=== PATIENT | female | born 1940 | race Caucasian/White ===

== ENCOUNTER 2018-12-22 20:54 | Emergency (ER) | payer OTHER, MEDICARE ==
--- NOTE | 2018-12-22 21:24 | PDOC ---
Rapid Medical Evaluation Chief Complaint: Hematuria Medical Evaluation: I have performed a brief in-person evaluation of this patient. The patient presents with a chief complaint of: c/o hematuria from today; + dysuria and suprapubic discomfort; denies fever, vomiting; hx of kidney stones, asthma, hypothyroidism Pertinent physical exam findings: In NAD, abdomen soft, NT; no CVA tenderness I have ordered the following: Labs, urine The patient will proceed to the ED for further evaluation. 12/22/18 21:20
[2018-12-22 21:27] VITALS: BMI 12.9
--- NOTE | 2018-12-22 21:38 | PDOC ---
History of Present Illness - General Chief Complaint: Hematuria Stated Complaint: Hematuria Time Seen by Provider: 12/22/18 21:20 - History of Present Illness Initial Comments: 12/22/18 22:10 The patient is a 78 year old female with a history of kidney stones, Seizures, Asthma who presents for evaluation of hematuria. The patient reports noting blood in her urine today with associated lower abdominal pain prompting her presentation to the ED for further evaluation. She notes that her symptoms do not feel similar to her prior kidney stones. She reports associated nausea as well but otherwise denies fevers, chills, SOB, chest pain, vomiting, or changes with bowel movements. Past History - Past Medical History Allergies/Adverse Reactions: Allergies Allergy/AdvReac Type Severity Reaction Status Date / Time No Allergy Information Allergy Verified 12/22/18 21:26 Available Home Medications: Ambulatory Orders Levothyroxine [Synthroid -] 25 mcg PO DAILY 12/22/18 Levothyroxine [Synthroid -] 50 mcg PO DAILY 12/22/18 Cephalexin Monohydrate [Keflex -] 500 mg PO BID #14 capsule 12/23/18 Cephalexin [Keflex *Suspension*] 10 ml PO BID 10 Days #140 bottle 12/23/18 Asthma: Yes COPD: No Kidney Stones: Yes Psychiatric Problems: Yes Seizures: Yes - Suicide/Smoking/Psychosocial Hx Smoking History: Never smoked Have you smoked in the past 12 months: No Information on smoking cessation initiated: No Hx Alcohol Use: No Drug/Substance Use Hx: No Review of Systems - Review of Systems Comments:: 12/22/18 22:30 Constitutional: No fevers, chills, fatigue, malaise HEENT: No Rhinorrhea, nasal congestion, visual changes Cardiovascular: No chest pain, syncope, palpitations, lightheadedness Respiratory: No Cough, SOB, Hemoptysis, Gastrointestinal: Suprapubic abdominal pain, No Vomiting, Constipation, Diarrhea , Melena Genitourinary: Hematuria. No Dysuria, Frequency, Urgency, Hesitancy, Flank pain Musculoskeletal: No Myalgia, arthralgia Skin: No rashes, itching, bruising, pallor Neurologic: No Headache, Dizziness, Numbness, Weakness, or Tingling Psychiatric: No Hallucinations. No SI or HI *Physical Exam - Vital Signs Last Vital Signs Temp Pulse Resp BP Pulse Ox 97.8 F 122 H 20 155/82 100 09/20/19 21:17 12/22/18 21:17 12/22/18 21:17 12/22/18 21:17 12/22/18 21:17 - Physical Exam Comments: 12/22/18 22:30 General Appearance: Nourished. No Apparent Distress HEENT: No Pharyngeal Erythema, Tonsillar Exudate, Tonsillar Erythema Neck: No Cervical Lymphadenopathy Respiratory/Chest: Lungs Clear, Normal Breath Sounds. No Crackles, Rales, Rhonchi, Wheezing Cardiovascular: Regular Rhythm, Regular Rate. No Murmur, Gallops, Rubs Gastrointestinal/Abdominal: Normal Bowel Sounds, Soft. Mild Suprapubic discomfort with palpation. No Guarding, Rebound, Musculoskeletal: No CVA Tenderness Extremity: Normal Capillary Refill Integumentary: Normal Color, Dry, Warm Neurologic: Fully Oriented, Alert, Normal Mood/Affect, Normal Response, ED Treatment Course - LABORATORY CBC & Chemistry Diagram: 12/22/18 22:35 12/22/18 23:14 Medical Decision Making - Medical Decision Making 12/22/18 22:31 The patient is a 78 year old female with a history of kidney stones, Seizures, Asthma who presents for evaluation of hematuria. Given the patient's history and physical exam, we will obtain a cbc, cmp, blood cultures, ua, urine cultures to evaluate further. We will treat with iv fluids, ceftriaxone in the meantime and continue to monitor and reassess while here in the ED. 12/23/18 01:38 CBC, cmp are unremarkable. UA demonstrates positive leuk esterase, elevated wbc and rbc. Bladder US demonstrated no acute findings as preliminarily read by our telephone clerks supervisor radiologist. Patient refused CT scanning at this time as well as ceftriaxone. We are comfortable discharging the patient home in stable condition on keflex. Patient and family made aware of impression and plan, return precautions discussed including but not limited to worsening pain or symptoms, fevers, or signs of infection, chest pain, respiratory distress, inability to tolerate oral intake, dehydration, syncope, or neurologic changes. The patient is to follow up with PMD and specialist as recommended within 1 week , follow up information provided and the patient will call for an appointment. The patient is to take medications as instructed for duration of time and continue with supportive care, avoid triggers and precipitants. Patient is safe for outpatient follow-up. *DC/Admit/Observation/Transfer Diagnosis at time of Disposition: UTI (urinary tract infection) Qualifiers: Urinary tract infection type: site unspecified Hematuria presence: with hematuria Qualified Code(s): N39.0 - Urinary tract infection, site not specified - Discharge Dispostion Disposition: HOME Condition at time of disposition: Stable Decision to Admit order: No - Prescriptions Prescriptions: Cephalexin [Keflex *Suspension*] 10 ml PO BID 10 Days #140 bottle Cephalexin Monohydrate [Keflex -] 500 mg PO BID #14 capsule - Referrals Referrals: Xochitl Melchor MD [Primary Care Provider] - - Patient Instructions Printed Discharge Instructions: DI for Urinary Tract Infection (UTI) Additional Instructions: 1) Please follow-up with your primary care doctor in the next 2-3 days. Please call tomorrow to schedule a follow up appointment. If you cannot follow up with your doctor within 1 week please return to the Emergency Department for any urgent issues. 2) Your laboratory / imaging results were normal here in the ER, however your urine results demonstrate that you have a UTI. We have sent antibiotics to your pharmacy that you should take as directed. 3) If you have any worsening of symptoms or any other concerns, please return to the ER immediately. Return if worsening symptoms including fevers, headache, vomiting, visual or hearing disturbances, abdominal pain, chest pain, shortness of breath, syncope, dehydration, inability to take things by mouth/vomiting, altered mental status, or worsening concerning symptoms. 4) Please continue taking your home medications as directed. Side effects may include upset stomach, abdominal pain, vomiting, or diarrhea. Do not drink alcohol with your medications. - Post Discharge Activity
[2018-12-22] MEDS ORDERED: SODIUM CHLORIDE 0.9% 500 ML INFUS.BAG IV ONE (21:49)
--- NOTE | 2018-12-22 21:51 | PDOC ---
Attending Attestation - Resident Resident Name: Alen Victoria - ED Attending Attestation I have performed the following: I have examined & evaluated the patient, The case was reviewed & discussed with the resident, I agree w/resident's findings & plan - HPI HPI: 12/22/18 21:50 Pt comes with dysuria and hematuria and suprapubic abd pain. She has a hx of kidney stones. She has no flank pain at this time. She has nausea, but no vomiting. - Physicial Exam PE: 12/23/18 01:32 Pt has no abd or flank pain. Pt has only hematuria; no fever and no chills. Pt has clear lings and heart rate rhythm is normal. Pt has no edema of her extremities. - Medical Decision Making 12/22/18 23:28 Pt has leukocytes and blood in her urine. Pt has been treated with levaquin. 12/23/18 01:32 Patient Name: JUNIOR WEI THIS IS A PRELIMINARY REPORT FROM [facility] DATE OF SERVICE: 2018-12-22 23:39:17 IMAGES: 22 EXAM: Pelvic ultrasound limited to the urinary bladder HISTORY hematuria. 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 FINDINGS: Prevoid urinary bladder volume is 133.4 cc. Urinary bladder diverticula noted. Debris noted within urinary bladder. No discrete masses are noted but a mass could be obscured by the debris. Urologic evaluation recommended. Right ureteral jet not seen into the urinary bladder. Right ureteral obstruction ? Left ureteral jet was observed. Post void residual was 94.1 cc. 12/23/18 01:33 Pt is refusing spiral CT scan. She is demanding to go home/ I will send her home with rx for her UTI: Keflex suspension (pt cannot take pills) 500mg BID x 7 days.
[2018-12-22 22:52] LABS: BASO % 0.6 % (0-2.0); EOS % 0.9 % (0-4.5); HEMATOCRIT 41.3 % (32.4-45.2); HEMOGLOBIN 13.3 GM/dL (10.7-15.3); MCH 29.1 pg (25.7-33.7); MCHC 32.1 g/dl (32.0-36.0); MEAN CELL VOLUME 90.5 fl (80-96); MEAN PLT VOLUME 7.7 fl (7.5-11.1); MONO % 6.6 % (3.8-10.2); NEUT % 77.9 % (42.8-82.8); PLATELET COUNT 269 K/MM3 (134-434); RBC 4.56 M/mm3 (3.60-5.2); RDW 14.5 % (11.6-15.6); WHITE BLOOD COUNT 8.9 K/mm3 (4.0-10.0)
[2018-12-22 22:55] LABS: EPI CELLS 11.6 /HPF (0-5/HPF); HYALINE CASTS 56 /lpf (0-8); URINE APPEARANCE TURBID; URINE BACTERIA 1.5 /hpf (NEGATIVE); URINE BILIRUBIN NEGATIVE (NEGATIVE); URINE COLOR RED; URINE GLUCOSE (UA) NEGATIVE (NEGATIVE); URINE KETONE NEGATIVE (NEGATIVE); URINE LEUK ESTERASE 2+ (NEGATIVE); URINE NITRITE NEGATIVE (NEGATIVE); URINE PROTEIN 2+ (NEGATIVE); URINE UROBILINOGEN 0.2 mg/dL (0.2-1.0); URINE WBC 28 /hpf (0-5)
[2018-12-22] MEDS ORDERED: CEFTRIAXONE 1 GM in DEXTROSE 5%-WATER - 50 ML IVPB ONE (23:29)
[2018-12-23] LABS: URINE RBC 3332.7 /hpf (0-4); YEAST NONE SEEN (NEGATIVE)
[2018-12-23 00:07] LABS: ALBUMIN 3.4 g/dl (3.4-5.0); BILIRUBIN,TOTAL 0.7 mg/dL (0.2-1); BLOOD UREA NITROGEN 19.5 mg/dL (7-18); CALCIUM 9.2 mg/dL (8.5-10.1); CREATININE 0.5 mg/dL (0.55-1.3); POTASSIUM 4.4 mmol/L (3.5-5.1); TOT PROT 8.2 g/dl (6.4-8.2)
[2018-12-23] MEDS ORDERED: CEFTRIAXONE 1 GM/50 ML BAG ONE (01:32)
[2018-12-23] MEDS ORDERED: CEPHALEXIN 250 MG/5 ML ORAL SUSPENSION PO ONE (01:36)
[2018-12-23] MEDS ORDERED: CEPHALEXIN MONOHYDRATE 500 MG CAPSULE (UD) ONE (01:43)
[2018-12-23 02:27] VITALS: BP 153/53; PULSE 98; TEMP 98.1
== END 2018-12-23 02:27 | disposition home or self-care (01) ==
LOC: JER 20:54
DX: N39.0 Urinary tract infection, site not specified (principal); R31.9 Hematuria, unspecified; Z87.442 Personal history of urinary calculi; J45.909 Unspecified asthma, uncomplicated; G40.909 Epilepsy, unspecified, not intractable, without status epilepticus
CPT/HCPCS: 36415; 76856-TC; 80053; 81003; 85025; 87040; 87086; 99282-25